=== PATIENT | female | born 1935 | race Caucasian/White ===

== ENCOUNTER 2018-03-13 09:35 | Inpatient (IN) ==
[2018-03-13] MEDS ORDERED: Heparin - SQ 10,000 UNITS/ML Vial SQ SCH ×2 (12:00→20:00)
--- NOTE | 2018-03-13 14:40 | P.HPIM ---
History of Present Illness Primary Care Physician: UNKNOWN Chief Complaint: Fall History of Present Illness: The patient is an 82-year-old female with a past medical history of atrial fibrillation and dementia who is presenting to the hospital after a fall. The patient is unable to provide history secondary to her dementia but reports state that the patient sustained a mechanical fall yesterday and was complaining of right-sided lower extremity pain. The patient's daughter states that the patient has been living at an [facility] for the past 6 months. The patient was found to have a fracture of the right femoral neck in the emergency department. The patient was minimally verbal and appeared slightly agitated when woken up. Otherwise she appeared comfortable. Orthopedic surgery was contacted and ordered a CT of the extremity which is pending. Discussed with nursing at the bedside and discussed with the patient daughter over the phone. Inpatient Certification: I certify that the inpatient services were ordered in accordance with Medicare regulations governing the order. This includes certification that hospital inpatient services are reasonable and necessary and in the case of services not specified as inpatient-only under 42 CFR 419.22(n), that they are appropriately provided as inpatient services in accordance to with the 2-midnight benchmark under 43 CFR 412.3(e) Estimated Total Length of Stay (Days): 3 Plans for Post Hospital Care: SNF Review of Systems All other systems reviewed negative except as stated in HPI, unobtainable due to mental status PMFSH - History History Provided By: Family Member - Medical History Medical History: Medical History (Last Reviewed 03/13/18 @ 14:44 by Saw Pereyra DO) A-fib Dementia Hypertension - Surgical History Surgical History: Surgical History (Last Reviewed 03/13/18 @ 14:44 by Saw Pereyra DO) H/O lithotripsy Hx of section Hx of cholecystectomy - Family History Family History: Family History (Last Updated 03/13/18 @ 14:44 by Saw Pereyra DO) Other Family history unobtainable - Social History I have reviewed the patient's Social History: Yes - Tobacco History Second Hand Smoke Exposure: No Smoking Status: Never smoker - Alcohol History How Often Do You Have a Drink Containing Alcohol: Never - Substance Use History Substance History: No History of Abuse - Immunization History Tetanus Immunization: Unsure Tetanus Immunization Year if Known: 2015 Hx Influenza Vaccine This Season: No Medications and Allergies Active Medications: Active Medications Acetaminophen (Tylenol) 650 mg PO Q4H PRN PRN Reason: Temp > 100.4, pain 1-2 Heparin Sodium (Porcine) (Heparin Inj) 5,000 units SQ Q12H UBALDO Ondansetron HCl (Zofran Inj) 4 mg IV.PUSH Q6H PRN PRN Reason: NAUSEA OR VOMITING Senna/Docusate Sodium (Kati-Colace) 1 tab PO BID UBALDO Sodium Chloride (Ns Flush) 2 ml IV.FLUSH BID UBALDO Sodium Chloride (Ns Flush) 2 ml IV.FLUSH UNSCH PRN PRN Reason: FLUSH AFTER USING IV ACCESS Allergies Allergy/AdvReac Type Severity Reaction Status Date / Time iodine Allergy Severe Anaphylaxis Verified 03/13/18 12:03 Home Medications Medication Instructions Recorded Confirmed Type aspirin [Aspir-81] 81 mg PO DAILY 03/13/18 03/13/18 History dronedarone [Multaq] 400 mg PO BID 03/13/18 03/13/18 History dronedarone [Multaq] 400 mg PO BID 03/13/18 03/13/18 History hydroxyzine HCl 25 mg PO DAILY 03/13/18 03/13/18 History losartan 50 mg PO BID 03/13/18 03/13/18 History melatonin 5 mg PO HS 03/13/18 03/13/18 History memantine [Namenda XR] 28 mg PO DAILY 03/13/18 03/13/18 History metoprolol tartrate 25 mg PO BID 03/13/18 03/13/18 History Exam Vital signs: Vital Signs 03/13/18 14:13 Respiratory Rate 16 Intake & Output 03/12/18 03/13/18 03/13/18 18:59 06:59 18:59 Weight 46.4 kg Other: Weight On Admission 46.4 kg Narrative: GENERAL: No distress. SKIN: Focused skin assessment warm/dry. HEAD: Atraumatic. Normocephalic. EYES: Pupils equal and round. No scleral icterus. No injection or drainage. ENT: No nasal bleeding or discharge. Mucous membranes pink and moist. NECK: Trachea midline. No JVD. CARDIOVASCULAR: Regular rate and rhythm. Mild systolic murmur appreciated. RESPIRATORY: No accessory muscle use. Clear to auscultation. Breath sounds equal bilaterally. GASTROINTESTINAL: Abdomen soft, non-tender, nondistended. Hepatic and splenic margins not palpable. MUSCULOSKELETAL: No obvious deformities. No clubbing. No cyanosis. No edema. Right hip is nontender at this time. NEUROLOGICAL: Lethargic. No obvious cranial nerve deficits. Motor grossly within normal limits. Caprini VTE Risk Assessment Caprini VTE Risk Assessment: Moderate/High Risk (score >= 2) Caprini Risk Assessment Model: Point Value = 1 Point Value = 2 Point Value = 3 Point Value = 5 Age 41-60 Minor surgery BMI > 25 kg/m2 Swollen legs Varicose veins or History of unexplained or recurrent spontaneous Oral contraceptives or hormone replacement Sepsis (< 1 month) Serious lung disease, including pneumonia (< 1 month) Abnormal pulmonary function Acute myocardial infarction Congestive heart failure (< 1 month) History of inflammatory bowel disease Medical patient at bed rest Age 61-74 Arthroscopic surgery Major open surgery (> 45 min) Laparoscopic surgery (> 45 min) Malignancy Confined to bed (> 72 hours) Immobilizing plaster cast Central venous access Age >= 75 History of VTE Family history of VTE Factor V Leiden Prothrombin [id number] Lupus anticoagulant Anticardiolipin antibodies Elevated serum homocysteine Heparin-induced thrombocytopenia Other congenital or acquired thrombophilia Stroke (< 1 month) Elective arthroplasty Hip, pelvis, or leg fracture Acute spinal cord injury (< 1 month) Prophylaxis Regimen: Total Risk Factor Score Risk Level Prophylaxis Regimen 0-1 Low Early ambulation 2 Moderate Order ONE of the following: *Sequential Compression Device (SCD) *Heparin 5000 units SQ BID 3-4 Higher Order ONE of the following medications: *Heparin 5000 units SQ TID *Enoxaparin/Lovenox 40 mg SQ daily (WT < 150 kg, CrCl > 30 mL/min) *Enoxaparin/Lovenox 30 mg SQ daily (WT < 150 kg, CrCl > 10-29 mL/min) *Enoxaparin/Lovenox 30 mg SQ BID (WT < 150 kg, CrCl > 30 mL/min) AND/OR *Sequential Compression Device (SCD) 5 or more Highest Order ONE of the following medications: *Heparin 5000 units SQ TID (Preferred with Epidurals) *Enoxaparin/Lovenox 40 mg SQ daily (WT < 150 kg, CrCl > 30 mL/min) *Enoxaparin/Lovenox 30 mg SQ daily (WT < 150 kg, CrCl > 10-29 mL/min) *Enoxaparin/Lovenox 30 mg SQ BID (WT < 150 kg, CrCl > 30 mL/min) AND *Sequential Compression Device (SCD) Assessment and Plan - Plan Femoral neck fracture, right Following a mechanical fall. Noted on imaging. -CT pending. -orthopedic surgery has been consulted. -pain control with a bowel regimen. -rehab efforts. Dementia Chronic. Lives in an [facility]. Has some agitation at times. -case management consult for disposition. Afib Currently in NSR. -Continue dronedarone. -Hold aspirin. -Telemetry. Hypoglycemia Mild. Secondary to n.p.o. status. -Start D5 half-normal saline and monitor blood glucose levels. -advance diet when able. PPx: Heparin on hold until evaluated by ortho H&P: Quality - VTE Deep Vein Thrombosis/Pulmonary Embolism Present on Admission: No
[2018-03-13] MEDS ORDERED: Morphine Sulfate Inj 2 MG/ML Vial IV.PUSH PRN (14:59)
[2018-03-13] MEDS: Dextrose 5%/NaCl 0.45% Inj 1,000 ML IV.CONT SCH (15:11)
--- NOTE | 2018-03-13 15:23 | CT ---
EXAM DATE: 03/13/2018 3:10 PM EST AGE/SEX: 82 years / Female INDICATIONS: Trauma, fall. Right hip pain. CLINICAL DATA: This is the patient's initial encounter. Patient reports that signs and symptoms have been present for 1 day and indicates a pain score of 4/10. MEDICAL/SURGICAL HISTORY: Cardiovascular disease. Hypertension. section. Cholecystectomy . RADIATION DOSE: 10.55 CTDI (mGy) COMPARISON: [facility], CT ABDOMEN & PELVIS W/O CONTRAST, 04/10/2017. . TECHNIQUE: Multiple contiguous axial images were obtained through the pelvis without contrast. Imag es were obtained using multiple row detector helical technique. . Using automated exposure control an d adjustment of the mA and/or kV according to patient size, radiation dose was kept as low as reasona davina achievable to obtain optimal diagnostic quality images. DICOM format image data is available jennie ctronically for review and comparison. FINDINGS: There is an acute minimally impacted subcapital fracture involving the right proximal femur. Fecal im paction is noted. There is thickening of the wall of the rectum. This finding raises the possibility of focal colitis or rectal mass. Clinical correlation is recommended. The urinary bladder is unremark able. The uterus is normal. CONCLUSION: 1. Acute minimally impacted subcapital fracture involving the right proximal femur. 2. Circumferential thickening of the wall of the rectum. This finding raises the possibility of foca l colitis or rectal mass. Clinical correlation is recommended. 3. Fecal impaction is noted. Electronically signed by: Ignacio Nguyen MD Board Certified Radiologist 03/13/2018 3:22 PM EST
--- NOTE | 2018-03-13 16:23 | P.CONOP ---
[facility] Orthopedics Consult Note - [facility] Consult date: 03/13/18 Requesting physician: Saw Pereyra Consult reason: fracture Chief complaint: Right subcapital hip fracture Narrative: This is an 82 year old female with dementia who sustained a fall yesterday, landing on the right hip. Her daughter noticed her limping as she tried to walk today and took her to the emergency room where imaging showed a right femoral neck fracture. Orthopedics was consulted for further management. No further information able to be obtained from the patient due to her dementia. Per the patient's daughter, she has atrial fibrillation and takes Multaq and baby aspirin for this. Review of Systems unobtainable due to mental status PMFSH - History History Provided By: Family Member - Medical History Medical History: Medical History (Last Reviewed 03/13/18 @ 16:14 by Susie Juarez MD) A-fib Dementia Hypertension - Surgical History Surgical History: Surgical History (Last Reviewed 03/13/18 @ 16:14 by Susie Juarez MD) H/O lithotripsy Hx of section Hx of cholecystectomy - Family History Family History: Family History (Last Reviewed 03/13/18 @ 16:14 by Susie Juarez MD) Other Family history unobtainable - Social History I have reviewed the patient's Social History: Yes - Tobacco History Second Hand Smoke Exposure: No Smoking Status: Never smoker - Alcohol History How Often Do You Have a Drink Containing Alcohol: Never - Substance Use History Substance History: No History of Abuse - Immunization History Tetanus Immunization: Unsure Tetanus Immunization Year if Known: 2015 Hx Influenza Vaccine This Season: No Medications and Allergies Active Medications: Active Medications Acetaminophen (Tylenol) 650 mg PO Q4H PRN PRN Reason: Temp > 100.4, pain 1-2 Dronedarone (Multaq) 400 mg PO BID [facility] Heparin Sodium (Porcine) (Heparin Inj) 5,000 units SQ Q12H UBALDO Hydroxyzine HCl (Atarax) 25 mg PO DAILY UBALDO Dextrose/Sodium Chloride (D5w/1/2 Ns Inj) 1,000 mls @ 75 mls/hr IV.CONT .[id number] UBALDO Stop: 03/14/18 17:24 Last Admin: 03/13/18 15:11 Dose: 75 mls/hr Losartan Potassium (Cozaar) 50 mg PO BID UBALDO Melatonin (Melatonin) 5 mg PO HS [facility] Morphine Sulfate (Morphine Inj) 2 mg IV.PUSH Q4H PRN PRN Reason: SEVERE PAIN 3-10 Ondansetron HCl (Zofran Inj) 4 mg IV.PUSH Q6H PRN PRN Reason: NAUSEA OR VOMITING (Memantine [Namenda (Xr] 28 Mg)) 1 each PO DAILY [facility] Senna/Docusate Sodium (Kati-Colace) 1 tab PO BID UBALDO Sodium Chloride (Ns Flush) 2 ml IV.FLUSH BID UBALDO Sodium Chloride (Ns Flush) 2 ml IV.FLUSH UNSCH PRN PRN Reason: FLUSH AFTER USING IV ACCESS Allergies Allergy/AdvReac Type Severity Reaction Status Date / Time iodine Allergy Severe Anaphylaxis Verified 03/13/18 12:03 Home Medications Medication Instructions Recorded Confirmed Type aspirin [Aspir-81] 81 mg PO DAILY 03/13/18 03/13/18 History dronedarone [Multaq] 400 mg PO BID 03/13/18 03/13/18 History dronedarone [Multaq] 400 mg PO BID 03/13/18 03/13/18 History hydroxyzine HCl 25 mg PO DAILY 03/13/18 03/13/18 History losartan 50 mg PO BID 03/13/18 03/13/18 History melatonin 5 mg PO HS 03/13/18 03/13/18 History memantine [Namenda XR] 28 mg PO DAILY 03/13/18 03/13/18 History metoprolol tartrate 25 mg PO BID 03/13/18 03/13/18 History Exam Vital signs: Vital Signs 03/13/18 13:19 03/13/18 14:13 03/13/18 15:09 Temperature 98.7 F 98.8 F Pulse Rate 76 75 Respiratory Rate 18 16 16 Blood Pressure 152/66 H 114/55 L Pulse Oximetry 98 16 L 03/13/18 15:31 Temperature Pulse Rate Respiratory Rate 17 Blood Pressure Pulse Oximetry Intake & Output 03/12/18 03/13/18 03/13/18 18:59 06:59 18:59 Weight 46.4 kg Other: Weight On Admission 46.4 kg Narrative: Thin elderly female in no acute distress. Pain with palpation or attempted range of motion of the right hip. 2+DP pulse. Left lower extremity with nonpainful range of motion and 2+DP. Bilateral upper extremities show no pain with range of motion, 2+ radial pulses. Results - Diagnostic results Imaging: Impressions Pelvis CT 03/13/18 14:00 CONCLUSION: 1. Acute minimally impacted subcapital fracture involving the right proximal femur. 2. Circumferential thickening of the wall of the rectum. This finding raises the possibility of focal colitis or rectal mass. Clinical correlation is recommended. 3. Fecal impaction is noted. Assessment and Plan - Assessment and Plan 82 year old female with right impacted femoral neck fracture. I recommend operative treatment with open reduction internal fixation of her right hip fracture. I discussed alternatives with the daughter Sanjuanita over the phone, including nonoperative management and hemiarthroplasty. I discussed that nonoperative treatment could lead to other complications related to immobility, including bed sores, UTIs and pneumonia. I did discuss that occasionally ORIF fails and that she may require conversion to a hemiarthroplasty in the future. The daughter would prefer to do a smaller procedure at this time. Other risks of surgery were discussed, including bleeding, infection, damage to neurovascular structures, malunion, nonunion, persistent pain, and potential need for further surgical procedures. As she has a history of atrial fibrillation, will await cardiac clearance prior to proceeding either today or tomorrow. Keep NPO at this time for potential surgery later today.
[2018-03-13] MEDS ORDERED: ceFAZolin 2 GM Premix Inj 2 GM/50 ML PIGGYBACK IV.SIG SCH (16:45)
[2018-03-13] MEDS ORDERED: Chlorhexidine Gluconate 2% 1 Pack (2 Cloths) TOPICAL ONE (20:24)
[2018-03-13] MEDS ORDERED: Metoprolol Tartrate 25 MG Tablet PO SCH (20:24)
[2018-03-13] MEDS ORDERED: Sodium Chloride 0.9% 2 ML Flush PRN IV.FLUSH (20:28)
[2018-03-13] MEDS: Melatonin 5 MG Tablet PO SCH (20:48)
[2018-03-13] MEDS: Acetaminophen 325 MG Tablet PO PRN (20:48)
[2018-03-13] MEDS: Senna/Docusate Sodium 8.6/50 MG Tablet PO SCH (20:51)
[2018-03-13] MEDS ORDERED: Sodium Chloride 0.9% 2 ML Flush BID IV.FLUSH SCH (21:00)
[2018-03-13] MEDS ORDERED: Sodium Chlor 0.9% Inj 500 ML IV.SIG SCH (21:00)
[2018-03-14] MEDS ORDERED: Morphine Inj 4 MG/ML Vial IV.PUSH PRN ×2 (00:30→13:54)
[2018-03-14 04:33] LABS: Baso % (Auto) 0.4 % (0.0-2.0); Eos # (Auto) 0.2 th/mm3 (0.0-0.4); Eos % (Auto) 2.8 % (0.0-4.0); Hematocrit 32.6 % (35.0-46.0); Hemoglobin 11.1 gm/dL (11.6-15.3); Lymph # (Auto) 1.3 th/mm3 (1.0-4.8); Lymph % (Auto) 21.8 % (9.0-44.0); Mean Corpuscular HGB Conc 34.2 % (32.0-36.0); Mean Corpuscular Hemoglobin 30.3 pg (27.0-34.0); Mean Corpuscular Volume 88.6 fL (80.0-100.0); Mono # (Auto) 0.5 th/mm3 (0.0-0.9); Mono % (Auto) 9.3 % (0.0-8.0); Neut # (Auto) 3.8 th/mm3 (1.8-7.7); Neut % (Auto) 65.7 % (16.0-70.0); Platelet Count 122 th/mm3 (150-450); Red Blood Count 3.67 mil/mm3 (4.00-5.30); Red Cell Distribution Width 13.2 % (11.6-17.2); White Blood Count 5.8 th/mm3 (4.0-11.0)
[2018-03-14 04:46] LABS: INR 1.2 Ratio; Prothrombin Time 11.9 sec (9.8-11.6)
[2018-03-14] MEDS: Dextrose 5%/NaCl 0.45% Inj 1,000 ML IV.CONT SCH (04:47)
[2018-03-14 04:56] LABS: Alanine Aminotransferase 169 U/L (10-53); Albumin 2.6 g/dL (3.4-5.0); Anion Gap 8 meq/L (5-15); Aspartate Aminotransferase 349 U/L (15-37); Blood Urea Nitrogen 18 mg/dL (7-18); Calcium 7.8 mg/dL (8.5-10.1); Carbon Dioxide 27.4 meq/L (21.0-32.0); Chloride 106 meq/L (98-107); Glomerular Filtration Rate 53 mL/min (>89); Glucose,Random 104 mg/dL (74-106); Potassium 3.5 meq/L (3.5-5.1); Sodium 141 meq/L (136-145)
[2018-03-14 04:58] LABS: Alkaline Phosphatase 182 U/L (45-117); Total Protein 5.5 g/dL (6.4-8.2)
[2018-03-14] MEDS ORDERED: MEMANTINE 28 MG PO SCH (09:00)
--- NOTE | 2018-03-14 09:55 | MB ---
cc: Santhosh Fraser MD DATE: 03/14/2018 REASON FOR CONSULTATION: Preoperative evaluation. HISTORY OF PRESENT ILLNESS: The patient is an 82-year-old lady with dementia, who lives in a nursing facility, who had a fall, resulting in a right-sided hip fracture. I have been asked to perform cardiac clearance. The patient is not particularly verbal, and cannot give me any history. The patient's daughter is at bedside, and says that she endorses hip pain mainly by moaning. The patient's daughter has no idea whether she has any other types of pain. All history obtained from the chart. PAST MEDICAL HISTORY: Atrial fibrillation, on Multaq (not on anticoagulation due to fall risk); dementia, hypertension. CURRENT MEDICATIONS: Tylenol, subcutaneous heparin, Atarax, Multaq, Cozaar 50 mg daily, Lopressor p.r.n., melatonin 5 mg at bedtime, morphine. ALLERGIES: IODINE. PHYSICAL EXAMINATION: VITAL SIGNS: Temperature 98.4 down from 100.2, pulse 74, respiratory rate 18, BP 160/90, saturating 98% on room air. GENERAL: Elderly, nonverbal/demented lady. NECK: No JVD. LUNGS: Clear to auscultation bilaterally. CARDIOVASCULAR: Regular rate and rhythm. No significant murmurs appreciated. ABDOMEN: Benign. EXTREMITIES: No edema. LABORATORY DATA: White count 5.8, hematocrit 32.6, platelets 122. INR is 1.2. Sodium 141, potassium 3.5, chloride 106, bicarbonate 27.4, BUN 18, creatinine 1.0, glucose 104. EKG from 03/13/2018 shows sinus rhythm with left axis deviation, but no acute ST or T-wave changes. IMPRESSION AND PLAN: A very difficult to perform full preoperative evaluation, given the patient is essentially nonverbal; however, she does not appear to be in acute congestive heart failure or acute coronary syndrome. Her EKG is nonischemic. Given the very high risk of nonoperative therapy, I believe she can proceed to surgery with approximately a moderate risk of complications. I discussed that our risk assessment for the patient is somewhat incomplete by the patient's lack of symptoms, but the patient's daughter agrees that she should have expedited surgery, given the very high mortality of the nonoperative treatment. I do not believe the patient would benefit from further cardiac risk stratification such as stress testing, given the lack of any acute ischemic findings, as well as the unlikelihood of us being able to reduce her intraoperative risk. Again, she will be cleared at an approximately moderate risk, and I will be available if any further issues arise. I will sign off at this time. Thank you again for the opportunity to participate in this patient's care. MD ELE Hardwick/noam , 09:33 AM , 09:40 AM
--- NOTE | 2018-03-14 10:19 | P.PN ---
Subjective Interval history: Follow-up visit for right femoral neck fracture, dementia, A. fib and hypoglycemia. Patient is seen and examined resting in bed asleep with daughter at bedside. Patient moving all extremities, nonverbal and very sleepy. Daughter reports patient is very sensitive to pain medication and narcotics and had a bad reaction after anesthesia last year. Patient has been deemed moderate risk by cardiology for surgery, plans for surgery later today. Discussed mildly elevated liver enzymes, daughter reports patient is being followed by her primary care physician regarding this and recently stopped her statin as well as another blood pressure medicine, ultrasound of her "organs" per daughter was normal, will follow up with her primary in 1 month for monitoring of liver enzymes again. Physical Exam Vital signs: Vital Signs 03/13/18 13:19 03/13/18 14:13 03/13/18 15:09 Temperature 98.7 F 98.8 F Pulse Rate 76 75 Respiratory Rate 18 16 16 Blood Pressure 152/66 H 114/55 L Pulse Oximetry 98 16 L 03/13/18 15:31 03/13/18 17:08 03/13/18 20:04 Temperature Pulse Rate 77 79 Respiratory Rate 17 Blood Pressure Pulse Oximetry 03/13/18 20:29 03/13/18 23:53 03/13/18 23:58 Temperature 100.2 F H 98 F Pulse Rate 80 72 71 Respiratory Rate 18 18 Blood Pressure 123/97 H 143/60 H Pulse Oximetry 95 97 03/14/18 04:00 03/14/18 08:00 Temperature 98.1 F 98.4 F Pulse Rate 67 74 Respiratory Rate 18 18 Blood Pressure 133/62 162/90 H Pulse Oximetry 97 98 Intake & Output 03/13/18 03/14/18 03/14/18 18:59 06:59 18:59 Intake Total 1000 / 1000 Balance 1000 / 1000 Weight 46.4 kg Intake: IV 1000 / 1000 D5W/1/2 NS Inj 1,000 ML @ 75 1000 / 1000 mls/hr IV.CONT .[id number] [facility] Rx# :[id number] Other: # Voids 2 # Incontinent Voids 1 # Bowel Movements 0 Weight On Admission 46.4 kg Narrative: GENERAL: Thin elderly female resting in bed. SKIN: Warm and dry. HEAD: Atraumatic. Normocephalic. EYES: Pupils equal. No scleral icterus. No injection or drainage. ENT: No nasal bleeding or discharge. Mucous membranes pink and moist. NECK: Trachea midline. CARDIOVASCULAR: Regular rate and rhythm. RESPIRATORY: No accessory muscle use. Clear to auscultation. Breath sounds equal bilaterally. GASTROINTESTINAL: Abdomen soft, non-tender, nondistended. + Bowel sounds MUSCULOSKELETAL: Extremities without clubbing, cyanosis, or edema. No obvious deformities. NEUROLOGICAL: Lethargic. No obvious cranial nerve deficits. Moves all extremities spontaneously. PSYCHIATRIC: Unable to assess. Results - Labs CBC & Chem 7: 03/14/18 03:56 03/14/18 04:06 Laboratory Results - last 24 hr 03/14/18 03/14/18 03/14/18 00:20 03:56 03:56 WBC 5.8 RBC 3.67 L Hgb 11.1 L Hct 32.6 L MCV 88.6 MCH 30.3 MCHC 34.2 RDW 13.2 Plt Count 122 L MPV 8.0 Neut % (Auto) 65.7 Lymph % (Auto) 21.8 Long % (Auto) 9.3 H Eos % (Auto) 2.8 Baso % (Auto) 0.4 Neut # (Auto) 3.8 Lymph # (Auto) 1.3 Long # (Auto) 0.5 Eos # (Auto) 0.2 Baso # (Auto) 0.0 WBC Differential . Differential Comment Auto diff final PT 11.9 H INR 1.2 Sodium Potassium Chloride Carbon Dioxide Anion Gap BUN Creatinine Estimated GFR POC Glucose 105 Random Glucose Calcium Total Bilirubin AST ALT Alkaline Phosphatase Total Protein Albumin 03/14/18 03/14/18 04:06 06:00 WBC RBC Hgb Hct MCV MCH MCHC RDW Plt Count MPV Neut % (Auto) Lymph % (Auto) Long % (Auto) Eos % (Auto) Baso % (Auto) Neut # (Auto) Lymph # (Auto) Long # (Auto) Eos # (Auto) Baso # (Auto) WBC Differential Differential Comment PT INR Sodium 141 Potassium 3.5 Chloride 106 Carbon Dioxide 27.4 Anion Gap 8 BUN 18 Creatinine 1.00 Estimated GFR 53 L POC Glucose 95 Random Glucose 104 Calcium 7.8 L D Total Bilirubin 1.4 H AST 349 H ALT 169 H Alkaline Phosphatase 182 H Total Protein 5.5 L D Albumin 2.6 L - Imaging Impressions Pelvis CT 03/13/18 14:00 CONCLUSION: 1. Acute minimally impacted subcapital fracture involving the right proximal femur. 2. Circumferential thickening of the wall of the rectum. This finding raises the possibility of focal colitis or rectal mass. Clinical correlation is recommended. 3. Fecal impaction is noted. Assessment and Plan - Plan Femoral neck fracture, right Following a mechanical fall. Noted on imaging. -CT of the pelvis with acute minimally impacted subcapital fracture involving the right proximal femur. Circumferential thickening of the wall of the cecum, findings possibility of focal colitis or rectal mass. Fecal impaction noted. -orthopedic surgery consulted, plans for surgery today. -pain control with a bowel regimen. Will use low dose pain medications or Tylenol only. - Cardiology deemed moderate risk for surgery. -rehab efforts. Dementia Chronic. Lives in an [facility]. Has some agitation at times. -case management consult for disposition. Afib Currently in NSR. -Continue dronedarone. -Hold aspirin. -Telemetry. Hypoglycemia Mild. Secondary to n.p.o. status. -Start D5 half-normal saline and monitor blood glucose levels. -advance diet when able. Transaminitis, acute - LFT's WNL on admission and jumped up today - Per daughter statin has been on hold, ultrasound was negative up with PCP PPx: DVT prophylaxis per orthopedic services Discussed Condition With: Patient and RN
[2018-03-14] MEDS ORDERED: Propofol Inj 500 MG/50 ML Vial ONE (11:56)
[2018-03-14] MEDS ORDERED: Bupivacaine/Dextrose 0.75% Inj 2 ML Ampul ONE (11:56)
--- NOTE | 2018-03-14 12:02 | P.PNOP ---
Subjective Interval history: Resting comfortably. Physical Exam Vital signs: Vital Signs 03/13/18 13:19 03/13/18 14:13 03/13/18 15:09 Temperature 98.7 F 98.8 F Pulse Rate 76 75 Respiratory Rate 18 16 16 Blood Pressure 152/66 H 114/55 L Pulse Oximetry 98 16 L 03/13/18 15:31 03/13/18 17:08 03/13/18 20:04 Temperature Pulse Rate 77 79 Respiratory Rate 17 Blood Pressure Pulse Oximetry 03/13/18 20:29 03/13/18 23:53 03/13/18 23:58 Temperature 100.2 F H 98 F Pulse Rate 80 72 71 Respiratory Rate 18 18 Blood Pressure 123/97 H 143/60 H Pulse Oximetry 95 97 03/14/18 04:00 03/14/18 08:00 Temperature 98.1 F 98.4 F Pulse Rate 67 74 Respiratory Rate 18 18 Blood Pressure 133/62 162/90 H Pulse Oximetry 97 98 Intake & Output 03/13/18 03/14/18 03/14/18 18:59 06:59 18:59 Intake Total 1000 / 1000 Balance 1000 / 1000 Weight 46.4 kg Intake: IV 1000 / 1000 D5W/1/2 NS Inj 1,000 ML @ 75 1000 / 1000 mls/hr IV.CONT .[id number] [facility] Rx# :[id number] Other: # Voids 2 # Incontinent Voids 1 # Bowel Movements 0 Weight On Admission 46.4 kg Narrative: Right hip with no wounds. Right hip marked. Mild swelling. Results - Labs CBC & Chem 7: 03/14/18 03:56 03/14/18 04:06 Laboratory Results - last 24 hr 03/14/18 03/14/18 03/14/18 00:20 03:56 03:56 WBC 5.8 RBC 3.67 L Hgb 11.1 L Hct 32.6 L MCV 88.6 MCH 30.3 MCHC 34.2 RDW 13.2 Plt Count 122 L MPV 8.0 Neut % (Auto) 65.7 Lymph % (Auto) 21.8 Fleming % (Auto) 9.3 H Eos % (Auto) 2.8 Baso % (Auto) 0.4 Neut # (Auto) 3.8 Lymph # (Auto) 1.3 Fleming # (Auto) 0.5 Eos # (Auto) 0.2 Baso # (Auto) 0.0 WBC Differential . Differential Comment Auto diff final PT 11.9 H INR 1.2 Sodium Potassium Chloride Carbon Dioxide Anion Gap BUN Creatinine Estimated GFR POC Glucose 105 Random Glucose Calcium Total Bilirubin AST ALT Alkaline Phosphatase Total Protein Albumin 03/14/18 03/14/18 03/14/18 04:06 06:00 10:21 WBC RBC Hgb Hct MCV MCH MCHC RDW Plt Count MPV Neut % (Auto) Lymph % (Auto) Fleming % (Auto) Eos % (Auto) Baso % (Auto) Neut # (Auto) Lymph # (Auto) Fleming # (Auto) Eos # (Auto) Baso # (Auto) WBC Differential Differential Comment PT INR Sodium 141 Potassium 3.5 Chloride 106 Carbon Dioxide 27.4 Anion Gap 8 BUN 18 Creatinine 1.00 Estimated GFR 53 L POC Glucose 95 91 Random Glucose 104 Calcium 7.8 L D Total Bilirubin 1.4 H AST 349 H ALT 169 H Alkaline Phosphatase 182 H Total Protein 5.5 L D Albumin 2.6 L - Imaging Impressions Pelvis CT 03/13/18 14:00 CONCLUSION: 1. Acute minimally impacted subcapital fracture involving the right proximal femur. 2. Circumferential thickening of the wall of the rectum. This finding raises the possibility of focal colitis or rectal mass. Clinical correlation is recommended. 3. Fecal impaction is noted. Assessment and Plan - Assessment and Plan 82 year old female with right impacted femoral neck fracture. I spent time discussing the diagnosis with the patient's daughter. We discussed risks and benefits of surgical management. I reviewed the notes from Dr. Juarez. I have been asked to help move forward with surgical management to help expedite the care of this patient. We discussed percutaneous screw fixation versus hemiarthroplasty. We discussed the postoperative rehabilitation in detail. I do agree with moving forward with surgical management. The patient has been deemed moderate risk by cardiology. We are going to move forward with percutaneous screw fixation. We discussed about DVT prophylaxis postoperatively. We discussed that if this fails the patient may need further surgery such as conversion to hemiarthroplasty. Other risks of surgery were discussed, including bleeding, infection, damage to neurovascular structures, malunion, nonunion, persistent pain, and potential need for further surgical procedures.
[2018-03-14] MEDS ORDERED: Sodium Chlor 0.9% Inj 250 ML ONE (13:35)
[2018-03-14] MEDS ORDERED: Aluminum/Magnesium/Simethacone Susp 30 ML UDC PO PRN (13:54)
[2018-03-14] MEDS ORDERED: Post-op Orders (for Pharmacy) OTHER STA (13:54)
[2018-03-14] MEDS ORDERED: Bisacodyl 10 MG Supp RECTAL PRN (13:54)
--- NOTE | 2018-03-14 14:01 | P.OP ---
Preoperative Diagnosis: Right hip nondisplaced subcapital femoral neck fracture Postoperative Diagnosis: Same Date of procedure: 03/14/18 Procedure: Right hip treatment of nondisplaced subcapital femoral neck fracture with percutaneous screw fixation Anesthesia: spinal Surgeon: Kendrick Hernandez MD C D Reactor Operator: ANDREW Ryan The surgical procedure was assisted by my Advanced Registered Nurse Practitioner. My TOLL SETTLEMENT CLERK presence was necessary throughout this case for the manipulation and positioning of the surgical extremity. My TOLL SETTLEMENT CLERK was assisting me throughout the duration of this procedure. The skill set of an Advance Registered Nurse Practitioner was medically necessary to complete this procedure. During the surgical case, the surgical scrub technician was working at the back table and the Advance Registered Nurse Practitioner was directly assisting me. Operation and Findings: Estimated blood loss: 30 cc Implants: Synthes stainless steel cannulated screws, 7.3. The patient received intravenous Ancef and vancomycin. After the appropriate anesthesia was administered, the patient was transferred to the fracture table. The fracture was anatomically reduced under fluoroscopic imaging. The hip was prepped and draped in usual sterile fashion. Using fluoroscopic guidance we established a small incision on the lateral aspect of the hip. We then incised through the deep fascia as well. We placed three threaded guidewires in a triangular configuration, starting laterally with the tips of the guidewires placed within the femoral head. We confirmed that there was no intra-articular penetration of the tips of these guidewires. The lateral aspect of the guidewires were kept proximal to the lower portion of the lesser trochanter to reduce the risk of periprosthetic fracture. We measured the appropriate depth for the screws and then drilled the cortex laterally. The 3 screws were then placed within the bone. The screws purchase into the bone was considered to be excellent. Note that 1 of the screws which was more anterior than typical, was more in the anterior intertrochanteric line. However since the screw had excellent purchase, we decided to keep it and the screw was within the neck and head. We took final fluoroscopic imaging which revealed that the fracture remained good position. The hardware was in good position as well. The wounds were thoroughly irrigated and then closed with a 0 Vicryl followed by 2-0 Vicryl and lemuel. The postoperative plan is to start toe-touch weightbearing. Additionally, we will initiate postoperative antibiotics for 24 hours along with DVT prophylaxis consisting of early mobilization, SCDs, compression stockings, and initially Lovenox followed by resumption of her outpatient aspirin.
--- NOTE | 2018-03-14 14:13 | XR ---
EXAM DATE: 03/14/2018 2:06 PM EST AGE/SEX: 82 years / Female INDICATIONS: Right hip pinning. CLINICAL DATA: This is the patient's initial encounter. Patient reports that signs and symptoms have been present for 1 day and indicates a pain score of Nonresponsive. MEDICAL/SURGICAL HISTORY: Non-responsive. Non-responsive. COMPARISON: [facility] [place], CT PELVIS W/O CONTRAST, 03/13/2018. . FINDINGS: Three screws are identified within the right proximal femur status post ORIF. The right femur appears to be adequate in alignment. CONCLUSION: Status post ORIF of right proximal femur fracture with 3 screws in good position and adequate alignme nt noted. Electronically signed by: Ignacio Nguyen MD Board Certified Radiologist 03/14/2018 2:11 PM EST
[2018-03-14] MEDS: ceFAZolin 1 GM Premix Inj 1 GM/50 ML PIGGYBACK IV.SIG SCH ×2 (17:21→23:38)
[2018-03-14] MEDS: Melatonin 5 MG Tablet PO SCH (20:51)
[2018-03-14] MEDS: Senna/Docusate Sodium 8.6/50 MG Tablet PO SCH (20:51)
[2018-03-14] MEDS: Multivitamin/Minerals Therapeutic Tablet PO SCH (20:51)
[2018-03-14] MEDS ORDERED: Zolpidem Tartrate 5 MG Tablet PO PRN (21:00)
[2018-03-15] MEDS: Senna/Docusate Sodium 8.6/50 MG Tablet PO SCH ×2 (01:03→08:50)
[2018-03-15 04:22] LABS: Hematocrit 29.9 % (35.0-46.0)
[2018-03-15] MEDS: ceFAZolin 1 GM Premix Inj 1 GM/50 ML PIGGYBACK IV.SIG SCH (05:43)
--- NOTE | 2018-03-15 07:29 | P.PNOP ---
Subjective Interval history: The patient is resting in bed with daughter at bedside. The patient does have dementia and is confused. Patient is unable to verbalize questions appropriately. Physical Exam Vital signs: Vital Signs 03/14/18 08:00 03/14/18 14:10 03/14/18 14:15 Temperature 98.4 F 97.3 F L Pulse Rate 74 62 56 L Respiratory Rate 18 16 14 Blood Pressure 162/90 H 121/81 138/62 Pulse Oximetry 98 100 100 03/14/18 14:30 03/14/18 14:45 03/14/18 15:00 Temperature 98.0 F Pulse Rate 53 L 66 61 Respiratory Rate 14 14 14 Blood Pressure 147/75 H 99/52 L 143/65 H Pulse Oximetry 100 100 100 03/14/18 15:15 03/14/18 15:30 03/14/18 15:45 Temperature Pulse Rate 67 72 72 Respiratory Rate 14 14 14 Blood Pressure 99/53 L 111/56 L 125/87 Pulse Oximetry 98 98 99 03/14/18 19:56 03/14/18 20:14 03/14/18 21:19 Temperature 100.4 F H Pulse Rate 86 85 Respiratory Rate 18 18 Blood Pressure 173/76 H Pulse Oximetry 100 03/14/18 23:35 03/14/18 23:55 03/15/18 02:17 Temperature 97.4 F L Pulse Rate 66 62 Respiratory Rate 18 16 Blood Pressure 133/64 Pulse Oximetry 96 03/15/18 04:00 03/15/18 04:03 Temperature 97.6 F Pulse Rate 68 65 Respiratory Rate 17 Blood Pressure 167/73 H Pulse Oximetry 96 Intake & Output 03/14/18 03/15/18 03/15/18 18:59 06:59 18:59 Intake Total 900 / 900 2460 / 2460 Output Total 30 / 30 600 / 600 Balance 870 / 870 1860 / 1860 Weight 46.2 kg Intake: IV 350 / 350 2100 / 2100 NS Inj 250 ML @ 0 mls/hr .ROUTE 250 / 250 [facility] Rx#:[id number] D5W/1/2 NS Inj 1,000 ML @ 75 1000 / 1000 mls/hr IV.CONT .[id number] [facility] Rx# :[id number] LR 1000 mL Inj 1,000 ML @ 80 1000 / 1000 mls/hr IV.CONT .[id number] [facility] Rx# :[id number] Ancef 1 GM Premix Inj 1 gm In 50 / 50 100 / 100 50 ml @ 100 mls/hr IV.SIG Q6H [facility] Rx#:[id number] Ancef 2 GM Premix Inj 2 gm In 50 / 50 50 ml @ 100 mls/hr IV.SIG RN CARDIOVASCULAR [facility] Rx#:[id number] Oral 360 / 360 Anesthesia Amount 550 / 550 Output: Estimated Blood Loss 30 / 30 Urine Amount (Catheter) 600 / 600 Female External 600 / 600 Other: # Incontinent Voids 3 Date of Last Bowel Movement 03/14/18 # Bowel Movements 1 Narrative: The patient's dressing is clean, dry, and intact. EHL/TA/G are intact. 2+ pedal pulse. The patient's calf is soft and nontender. Sensation is intact to light touch distally. - Urinary Catheter Management Female External Cath placed during this visit: no Results - Labs CBC & Chem 7: 03/15/18 03:51 03/14/18 04:06 Laboratory Results - last 24 hr 03/14/18 03/14/18 03/14/18 10:21 18:36 23:40 Hgb Hct POC Glucose 91 91 126 H 03/15/18 03/15/18 03:51 05:42 Hgb 10.0 L Hct 29.9 L POC Glucose 94 - Imaging Impressions Hip X-Ray 03/14/18 00:00 CONCLUSION: Status post ORIF of right proximal femur fracture with 3 screws in good position and adequate alignment noted. - Procedures Right hip treatment of nondisplaced subcapital femoral neck fracture with percutaneous screw fixation Assessment and Plan - Assessment and Plan POD #1: Right hip treatment of nondisplaced subcapital femoral neck fracture with percutaneous screw fixation 1. Toe-touch weightbearing on [right] lower extremity. 2. Lovenox followed by aspirin for DVT prophylaxis. 3. Ice as needed for swelling. 4. Stable per ortho for discharge to [facility] facility when medically cleared and arrangements have been made. Plan is for rehab in [place] per daughter. 5. The patient will follow up with Dr. Hernandez and/or ANDREW Muñoz in 1- 2 weeks. 6. Daily dressing changes starting postop day 2.
[2018-03-15] MEDS: Multivitamin/Minerals Therapeutic Tablet PO SCH (08:50)
--- NOTE | 2018-03-15 10:05 | P.DS ---
Date of admission: 03/13/18 13:36 Primary care physician: UNKNOWN Attending physician on discharge: Ignacio Zaldivar Anticipated date of discharge: 03/15/18 Brief History from admission: The patient is an 82-year-old female with a past medical history of atrial fibrillation and dementia who is presenting to the hospital after a fall. The patient is unable to provide history secondary to her dementia but reports state that the patient sustained a mechanical fall yesterday and was complaining of right-sided lower extremity pain. The patient's daughter states that the patient has been living at an [facility] for the past 6 months. The patient was found to have a fracture of the right femoral neck in the emergency department. The patient was minimally verbal and appeared slightly agitated when woken up. Otherwise she appeared comfortable. Orthopedic surgery was contacted and ordered a CT of the extremity which is pending. Discussed with nursing at the bedside and discussed with the patient daughter over the phone. DS: Medications - Discharge Medications Prescriptions: enoxaparin [Lovenox] 40 mg SUB-Q DAILY 10 Days #10 units hydrocodone-acetaminophen [[place]] 1 - 2 tab PO Q4-6H #50 tab DS: Summary Hospital Course: 82-year-old female with past medical history significant for atrial fibrillation , hypertension, dementia, history of lithotripsy who presented to the emergency department on 03/13 following a mechanical fall on her right side. Imaging revealed right femoral neck fracture and orthopedic services was consulted. Prior to surgery patient was seen and evaluated by cardiology services for risk assessment given her cardiac history. She was deemed to moderate risk for surgery and underwent percutaneous screw fixation of the right femur by 03/14. Patient was seen by orthopedic services today and cleared for discharge. Recommendations to continue DVT prophylaxis with Lovenox followed by aspirin, toe-touch weightbearing of right lower extremity. Will need to follow-up with orthopedic services in 1-2 weeks, daily dressing changes starting postop day 2. H&H following surgery stable 10.9/29.9. Admission labs with noted elevated LFTs, previously discussed with daughter. Patient is being followed by her primary care physician regarding elevation of these, statin and other medication discontinued, follow-up testing in 1 month. Patient is seen and examined resting in bed with the aid present. She is asleep but awakens to light touch. History of dementia, does not answer questions appropriately, follows commands in all extremities with repetitive prompting. Denies pain, spoke with nurse who does not report any events overnight. Spoke with daughter later in the morning, agreeable with discharge. - Time Spent with Patient Total time spent providing and/or coordinating discharge services: Greater than 30 minutes - Quality: VTE Deep Vein Thrombosis/Pulmonary Embolism Present on Admission: No Exam Vital signs: Vital Signs 03/14/18 14:10 03/14/18 14:15 03/14/18 14:30 Temperature 97.3 F L Pulse Rate 62 56 L 53 L Respiratory Rate 16 14 14 Blood Pressure 121/81 138/62 147/75 H Pulse Oximetry 100 100 100 03/14/18 14:45 03/14/18 15:00 03/14/18 15:15 Temperature 98.0 F Pulse Rate 66 61 67 Respiratory Rate 14 14 14 Blood Pressure 99/52 L 143/65 H 99/53 L Pulse Oximetry 100 100 98 03/14/18 15:30 03/14/18 15:45 03/14/18 19:56 Temperature Pulse Rate 72 72 86 Respiratory Rate 14 14 Blood Pressure 111/56 L 125/87 Pulse Oximetry 98 99 03/14/18 20:14 03/14/18 21:19 03/14/18 23:35 Temperature 100.4 F H 97.4 F L Pulse Rate 85 66 Respiratory Rate 18 18 18 Blood Pressure 173/76 H 133/64 Pulse Oximetry 100 96 03/14/18 23:55 03/15/18 02:17 03/15/18 04:00 Temperature 97.6 F Pulse Rate 62 68 Respiratory Rate 16 17 Blood Pressure 167/73 H Pulse Oximetry 96 03/15/18 04:03 03/15/18 08:00 Temperature 97.9 F Pulse Rate 65 67 Respiratory Rate 16 Blood Pressure 148/74 H Pulse Oximetry 98 Intake & Output 03/14/18 03/15/18 03/15/18 18:59 06:59 18:59 Intake Total 900 / 900 2460 / 2460 Output Total 30 / 30 600 / 600 Balance 870 / 870 1860 / 1860 Weight 46.2 kg Intake: IV 350 / 350 2100 / 2100 NS Inj 250 ML @ 0 mls/hr .ROUTE 250 / 250 [facility][id number] D5W/1/2 NS Inj 1,000 ML @ 75 1000 / 1000 mls/hr IV.CONT .[id number] [facility] Rx# :[id number] LR 1000 mL Inj 1,000 ML @ 80 1000 / 1000 mls/hr IV.CONT .[id number] [facility] Rx# :[id number] Ancef 1 GM Premix Inj 1 gm In 50 / 50 100 / 100 50 ml @ 100 mls/hr IV.SIG Q6H [facility] Rx#:[id number] Ancef 2 GM Premix Inj 2 gm In 50 / 50 50 ml @ 100 mls/hr IV.SIG TAX EXAMINING TECHNICIAN [facility] Rx#:[id number] Oral 360 / 360 Anesthesia Amount 550 / 550 Output: Estimated Blood Loss 30 / 30 Urine Amount (Catheter) 600 / 600 Female External 600 / 600 Other: # Incontinent Voids 3 Date of Last Bowel Movement 03/14/18 # Bowel Movements 1 Narrative: GENERAL: Thin elderly female resting in bed. SKIN: Warm and dry. HEAD: Atraumatic. Normocephalic. EYES: Pupils equal. No scleral icterus. No injection or drainage. ENT: No nasal bleeding or discharge. Mucous membranes pink and moist. NECK: Trachea midline. CARDIOVASCULAR: Regular rate and rhythm. RESPIRATORY: No accessory muscle use. Clear to auscultation. Breath sounds equal bilaterally. GASTROINTESTINAL: Abdomen soft, non-tender, nondistended. + Bowel sounds MUSCULOSKELETAL: Extremities without clubbing, cyanosis, or edema. No obvious deformities. NEUROLOGICAL: Sleepy but awakens to touch. No obvious cranial nerve deficits. Moves all extremities spontaneously. PSYCHIATRIC: Unable to assess. Results Procedures completed during hospitalization: Right hip treatment of nondisplaced subcapital femoral neck fracture with percutaneous screw fixation Labs on day of discharge: Labs from last 24 hours 03/15/18 03/15/18 03/14/18 05:42 03:51 23:40 Hgb 10.0 L Hct 29.9 L POC Glucose 94 126 H 03/14/18 03/14/18 18:36 10:21 Hgb Hct POC Glucose 91 91 - Impressions ITS Impressions Pelvis CT 03/13/18 14:00 CONCLUSION: 1. Acute minimally impacted subcapital fracture involving the right proximal femur. 2. Circumferential thickening of the wall of the rectum. This finding raises the possibility of focal colitis or rectal mass. Clinical correlation is recommended. 3. Fecal impaction is noted. Hip X-Ray 03/14/18 00:00 CONCLUSION: Status post ORIF of right proximal femur fracture with 3 screws in good position and adequate alignment noted. Discharge Plan - Discharge Disposition Patient Disposition: Discharge to SNF - Discharge Condition Condition: Good - Discharge Order Discharge Orders: Discharge Order (Routine); Ordered 03/15/18 Ordered By: Rupert Donnelly - Physicians Team Primary Care Provider: UNKNOWN, Attending Provider: Ignacio Zaldivar Other Providers: Susie Juarez MD ; Santhosh Fraser MD ; [email or web address] - Rxs /Orders / Referrals /Forms Prescriptions: New enoxaparin [Lovenox] 40 mg/0.4 mL Syringe 40 mg SUB-Q DAILY 10 Days Qty: 10 RF: 0 hydrocodone-acetaminophen [[place]] 5-325 mg Tablet 1 - 2 tab PO Q4-6H Qty: 50 RF: 0 Continue aspirin [Aspir-81] 81 mg Tablet,Delayed Release (Dr/Ec) 81 mg PO DAILY Qty: 0 RF: 0 dronedarone [Multaq] 400 mg Tablet 400 mg PO BID hydroxyzine HCl 25 mg Tablet 25 mg PO DAILY losartan 50 mg Tablet 50 mg PO BID melatonin 5 mg Tablet 5 mg PO HS memantine [Namenda XR] 28 mg Capsule,Sprinkle,Er 24hr 28 mg PO DAILY Ambulatory Orders / Order Sets / DME: Adjustable Commode 3-in-1 (1 each) (Routine) Location: Determined by Patient Ordered By: Cesar Rubin Walker With Front Wheels (1 each) (Routine) Location: Determined by Patient Ordered By: Cesar Rubin Referrals: Kendrick Hernandez MD [Physician] - See Instructions (F/U in the office with Dr. Hernandez or Odell Rubin APRN as previously scheduled. ) UNKNOWN, [Primary Care Provider] - See Instructions
[2018-03-15] MEDS ORDERED: Enoxaparin Inj 40 MG/0.4 ML Syringe SQ SCH (13:00)
[2018-03-15] MEDS: Acetaminophen 325 MG Tablet PO PRN (13:16)
== END 2018-03-15 13:52 | DRG 482 ==
LOC: NEDDLT 09:35 → N06 13:36
PROVIDERS: ADMIT Internal Medicine; ATTEND Internal Medicine
CPT/HCPCS: 71010; 71045; 72192; 73502; 76000; 80053; 82948; 82962; 85014; 85018; 85025; 85610; 85730; 93005; 97161; 97164; 99285; C1713; C1769; C1776; J0690; J1580; J1650; J2270; J2704; J3370; J7050; J7120